=== PATIENT | female | born 1990 | race African-American/Black ===

== ENCOUNTER 2016-10-11 19:14 | Inpatient (IN) | payer OTHER ==
[2016-10-11] MEDS ORDERED: IOPAMIDOL-300 100 ML VIAL IVP ONE (22:08)
[2016-10-11] MEDS ORDERED: HEPARIN 25,000 UNITS/500 ML 500 ML IV STA (22:35)
[2016-10-11] MEDS ORDERED: HEPARIN 5,000 UNIT/ML VIAL IVP ONE (22:35)
[2016-10-11] MEDS ORDERED: HEPARIN 25,000 UNITS/500 ML 500 ML IV ONE (22:37)
[2016-10-11] MEDS ORDERED: HEPARIN 5,000 UNIT/ML VIAL ONE (22:37)
[2016-10-11] MEDS ORDERED: ACETAMINOPHEN 325 MG TABLET PO PRN (23:00)
[2016-10-11] MEDS ORDERED: SODIUM CHLORIDE FLUSH 0.9% 10 ML SYRINGE IVP PRN (23:00)
[2016-10-11] MEDS ORDERED: ONDANSETRON 4 MG/2 ML VIAL IVP PRN (23:00)
[2016-10-11] MEDS ORDERED: HYDROmorphone 1 MG/ML SYRINGE IVP STA (23:12)
[2016-10-11] MEDS ORDERED: HYDROmorphone 1 MG/ML SYRINGE ONE (23:16)
[2016-10-11] MEDS ORDERED: LIDOCAINE PATCH 5% TOP PRN (23:32)
[2016-10-11] MEDS ORDERED: TEMAZEPAM 7.5 MG CAPSULE PO PRN (23:33)
[2016-10-12] MEDS: HYDROcod/ACETAM 5/325 MG TABLET PO PRN ×3 (00:57→08:03)
[2016-10-12] MEDS: SODIUM CHLORIDE FLUSH 0.9% 10 ML SYRINGE IVP SCH ×3 (03:56→11:42)
[2016-10-12] MEDS: MORPHINE 2 MG/ML SYRINGE IVP PRN ×2 (04:13→06:16)
[2016-10-12] MEDS ORDERED: PANTOPRAZOLE 40 MG TABLET PO SCH (07:00)
[2016-10-12] MEDS: NICOTINE 14 MG PATCH TOP SCH ×2 (08:08→08:25)
[2016-10-12] MEDS ORDERED: HYDROmorphone 2 MG TABLET PO PRN (08:39)
[2016-10-12] MEDS: HYDROmorphone 2 MG TABLET PO PRN ×2 (08:56→14:25)
[2016-10-12] MEDS ORDERED: SODIUM CHLORIDE 1 GM TABLET PO SCH (09:00)
[2016-10-12] MEDS ORDERED: POLYETHYLENE GLYCOL 3350 17 GM PACKET PO SCH (09:00)
[2016-10-12] MEDS ORDERED: HEPARIN 25,000 UNITS/500 ML 500 ML IV SCH (09:00)
[2016-10-12] MEDS ORDERED: HYDROmorphone 1 MG/ML SYRINGE IVP ONE ×2 (09:15→12:00)
[2016-10-12] MEDS ORDERED: NAPROXEN 250 MG TABLET PO PRN (09:55)
[2016-10-12] MEDS ORDERED: RIVAROXABAN 15 MG TABLET PO SCH (10:00)
[2016-10-12] MEDS ORDERED: SODIUM CHLORIDE 1 GM TABLET PO ONE (14:30)
[2016-10-12] MEDS ORDERED: CYCLOBENZAPRINE 10 MG TABLET PO SCH (21:00)
== END 2016-10-12 14:35 | disposition home or self-care (01) | DRG 176 ==
DX: I26.99 Other pulmonary embolism without acute cor pulmonale (principal); F17.210 Nicotine dependence, cigarettes, uncomplicated; Z71.6 Tobacco abuse counseling; Z82.3 Family history of stroke